=== PATIENT | male | born 1990 | race African-American/Black ===

== ENCOUNTER → 2016-12-09 | Outpatient (CLI) | payer BC ==
[2016-12-11 13:07] LABS: HGB A 97.6 % (94.0-98.0); HGB A2 2.4 % (0.7-3.1); HGB SOLUBILITY Negative (Negative)
== END | disposition home or self-care (01) ==
LOC: LAB 12:22
PROVIDERS: ATTEND Obstetrics & Gynecology Obstetrics
DX: Z31.440 Encounter of male for testing for genetic disease carrier status for procreative management (principal)
CPT/HCPCS: 83021; 85660

== ENCOUNTER 2021-09-29 16:12 | Emergency (ER) | payer BC ==
[~2021-09-29] VITALS: Ht 182.9 cm; Wt 100.0 kg
[2021-09-29 16:15] VITALS: BP 147/89
== END 2021-09-29 20:00 | disposition left against medical advice (07) ==
LOC: ER 16:12
DX: R22.1 Localized swelling, mass and lump, neck (principal); M54.2 Cervicalgia
CPT/HCPCS: 71045; 93970; 99284; Z7610